=== PATIENT | male | born 1995 | race Caucasian/White ===

== ENCOUNTER 2018-11-02 15:12 | Emergency (ER) | payer OTHER ==
[~2018-11-02] VITALS: Ht 185.4 cm; Wt 79.5 kg
[2018-11-02] MEDS ORDERED: ROBA500T PO (17:28)
[2018-11-02] MEDS: METHOCARBAMOL 500 MG TAB PO ONE (17:38)
[2018-11-02 17:41] VITALS: BP 134/68
== END 2018-11-02 17:42 | disposition home or self-care (01) ==
LOC: M ED 15:12
DX: M62.830 Muscle spasm of back (principal); G89.29 Other chronic pain; Z77.098 Contact with and (suspected) exposure to other hazardous, chiefly nonmedicinal, chemicals

== ENCOUNTER 2018-11-13 19:25 | Emergency (ER) | payer OTHER ==
[~2018-11-13] VITALS: Ht 185.4 cm; Wt 77.3 kg
[~2018-11-13 19:25] MED LIST: ROBA500T PO
[2018-11-13 20:11] LABS: BASO % 0.5 % (0.0-1.0); EOS # 0.1 10^3/uL (0.0-0.50); EOS % 1.8 % (0.0-3.0); HEMATOCRIT 43.8 % (42.0-52.0); HEMOGLOBIN 15.3 g/dl (13.5-17.5); LYMPH # 2.2 10^3/uL (1.5-6.5); LYMPH % 27.9 % (24.0-44.0); MEAN CORPUSCULAR HEMOGLOBIN 30.2 pg (27.0-33.0); MEAN CORPUSCULAR HGB CONC 34.9 g/dl (32.0-36.5); MEAN CORPUSCULAR VOLUME 86.4 fl (80.0-96.0); MONO # 0.8 10^3/uL (0.0-0.8); MONO % 10.5 % (0.0-5.0); NEUTROPHILS # 4.6 10^3/uL (1.8-7.7); NEUTROPHILS % 59.2 % (36.0-66.0); PLATELET COUNT, AUTOMATED 281 10^3/uL (150-450); RED BLOOD COUNT 5.07 10^6/uL (4.30-6.10); WHITE BLOOD COUNT 7.8 10^3/uL (4.0-10.0)
[2018-11-13 20:35] LABS: BLOOD UREA NITROGEN 9 MG/DL (7-18); CALCIUM LEVEL 9.2 MG/DL (8.5-10.1); CARBON DIOXIDE LEVEL 33 MEQ/L (21-32); CHLORIDE LEVEL 104 MEQ/L (98-107); CK-MB VALUE MASS < 1.0 NG/ML (<3.6); CPK CREATINE PHOSPHOKINASE 94 U/L (39-308); CREATININE FOR GFR 1.23 MG/DL (0.70-1.30); GLOMERULAR FILTRATION RATE > 60.0 (>60); GLUCOSE, FASTING 84 MG/DL (70-100); MB/CK RELATIVE INDEX 1.06 (< OR =4); POTASSIUM SERUM 3.9 MEQ/L (3.5-5.1); SODIUM LEVEL 141 MEQ/L (136-145); TROPONIN I < 0.02 NG/ML (< 0.10)
[2018-11-13 23:15] VITALS: BP 129/64
--- NOTE | 2018-11-14 09:47 | ECGEPIP ---
[facility] - ED Test Date: 2018-11-13 Pat Name: JC BEDOLLA Department: Room: - Gender: Male [employer] Machine Setup Operator: KG : [id number] Requested By: RAMON Montero Order Number: [id number] Reading MD: [place] Measurements Intervals [place] Rate: 68 P: 70 TX: 139 QRS: 83 QRSD: 100 T: 56 QT: 348 QTc: 372 Interpretive Statements SINUS RHYTHM WITH SINUS ARRHYTHMIA U WAVE NSTTW abnormalities No prior Electronically Signed on 11-14-2018 9:47:30 EDT by [place]
== END 2018-11-13 23:16 | disposition home or self-care (01) ==
LOC: M ED 19:25
DX: R07.89 Other chest pain (principal); R06.02 Shortness of breath